=== PATIENT | female | born 1955 | race Caucasian/White ===

== ENCOUNTER 2017-10-04 06:56 | Day surgery (SDC) | payer MEDICAID ==
[~2017-10-04] VITALS: Ht 154.9 cm; Wt 51.1 kg
[~2017-10-04 06:56] MED LIST: BUME2TAB PO; BUTA1CAP PO; HYDR-3237 PO; HYDR-882 PO; HYDR25TA11 PO; LISI1TAB7 PO; LUBI24CA7 PO; NORT75CA PO; OXYC15TA PO; PANT20TA3 PO; POTA10TA11 PO; PREG200C PO; PROM25TA10 PO; TEMA30CA PO; TERB250T3 PO; WARF-36 PO
[2017-10-04] MEDS ORDERED: LACTATED RINGERS 1,000 ML IV SCH (07:28)
[2017-10-04 08:01] VITALS: BP 143/80
[2017-10-04] MEDS ORDERED: HYDR-3245 PO (08:01)
[2017-10-04] MEDS ORDERED: FENT1PAT77 TD (08:15)
[2017-10-04] MEDS ORDERED: hydrALAzine 20 MG/ML, 1ML IV PRN (09:00)
[2017-10-04] MEDS ORDERED: HYDROmorphone 1 MG/ML, 1ML IV PRN (09:00)
[2017-10-04] MEDS ORDERED: ONDANSETRON 2MG/ML, 2ML IV PRN (09:00)
[2017-10-04] MEDS ORDERED: PROMETHAZINE 25 MG/ML, 1ML IV PRN (09:00)
[2017-10-04] MEDS ORDERED: ACETAMINOPHEN 325 MG TABLET PO PRN (09:00)
[2017-10-04] MEDS ORDERED: PROMETHAZINE 12.5 MG SUPP PR PRN (09:00)
[2017-10-04] MEDS ORDERED: ONDANSETRON ODT 8 MG PO PRN (09:00)
[2017-10-04] MEDS ORDERED: ALBUTEROL SULFATE 2.5 MG/3 ML NPPB PRN (09:00)
[2017-10-04] MEDS ORDERED: MEPERIDINE/PF 25MG/0.5ML IVPush PRN (09:00)
[2017-10-04] MEDS ORDERED: MIDAZOLAM 1 MG/ML, 2ML IV PRN (09:00)
[2017-10-04] MEDS ORDERED: LABETALOL 5MG/ML, 20ML IV PRN (09:00)
[2017-10-04] MEDS ORDERED: LORazepam 2 MG/ML, 1ML IVPush PRN (09:00)
[2017-10-04] MEDS ORDERED: OXYcodone 5 MG/5 ML ORAL.SOL UDC PO PRN (09:00)
[2017-10-04] MEDS ORDERED: PROPOFOL 10 MG/ML, 20ML ONE (09:05)
[2017-10-04] MEDS ORDERED: DEXAMETHASONE 4 MG/ML, 1ML ONE (09:05)
[2017-10-04] MEDS ORDERED: ONDANSETRON 2MG/ML, 2ML ONE ×2 (09:05→11:01)
[2017-10-04] MEDS ORDERED: FENTANYL PF 100 MCG/2ML ONE (10:34)
[2017-10-04] MEDS: FENTANYL PF 100 MCG/2ML IV PRN ×2 (10:35→10:45)
[2017-10-04] MEDS ORDERED: HYDROcodone/APAP 7.5-325MG/15ML UDC ONE (10:59)
[2017-10-04] MEDS ORDERED: HYDROcodone/APAP 7.5-325MG/15ML UDC PO PRN (11:00)
== END 2017-10-04 12:15 | disposition home or self-care (01) ==
LOC: OUT 06:56 → EDSTATUS 09:30 → OUT 12:15
PROVIDERS: ATTEND Physical Medicine & Rehabilitation Pain Medicine
DX: M51.26 Other intervertebral disc displacement, lumbar region (principal); F17.210 Nicotine dependence, cigarettes, uncomplicated; Z88.5 Allergy status to narcotic agent; Z88.0 Allergy status to penicillin; Z88.8 Allergy status to other drugs, medicaments and biological substances; Z79.899 Other long term (current) drug therapy
CPT/HCPCS: 72141; 72148; 93005; J1100; J2405; J2704; J3010; J7120